=== PATIENT | female | born 2000 | race Caucasian/White ===

== ENCOUNTER 2020-07-26 13:33 | Inpatient (IN) | payer BC, SELFPAY ==
[2020-07-26 13:56] VITALS: BP 144/98; PULSE 91; PULSE 96; RESP 20; TEMP 37.2; O2SAT 97; O2SAT 98; BMI 28.9
--- NOTE | 2020-07-26 13:57 | ED_ITS ---
HPI - Psych General Chief Complaint: General Medical Stated Complaint: ANXIETY Time Seen by Provider: 07/26/20 13:57 Source: patient and other (friend) Mode of arrival: ambulatory Limitations: no limitations History of Present Illness MD complaint: anxiety and other (confused, hyper) Onset (ago): week(s) (2) Duration: constant History of same: Yes Relieving factors: none Exacerbating factors: none Context: not taking psychiatric medications and significant life stressor Associated psychiatric symptoms: depression and racing thoughts Associated symptoms: denies other symptoms Treatments prior to arrival: none Related Data Allergies Allergy/AdvReac Type Severity Reaction Status Date / Time hydroxyzine Allergy Unknown unknown Verified 07/26/20 13:59 sertraline Allergy Unknown unknown Verified 07/26/20 13:59 Review of Systems Review of Systems: ROS unable to be obtained due to altered mental status, anxiety, agitation PMFSH Past Medical History Medical History Anxiety Bipolar 1 disorder Social History Social History Alcohol intake: never Smoking Status: Current every day smoker Use of substances other than those prescribed or required for medical reasons: Yes Substance Use Type: Marijuana Substance Use Frequency: Daily Advance Directives: No Advance Directives Information Provided: No Physical Exam Vital Signs: Vital Signs: Last Vital Signs Temp 98.9 F 07/26/20 13:56 Pulse 91 07/26/20 13:56 Resp 20 07/26/20 13:56 BP 144/98 H 07/26/20 13:56 Pulse Ox 97 07/26/20 13:56 Body Mass Index 28.9 Appearance: Alert. Oriented X3. Anxious/tearful mild acute distress. Eyes: Pupils equal, round and reactive to light. ENT: Pharynx normal. Neck: Normal inspection. Neck supple. CVS: Normal heart rate and rhythm. Pulses normal. Respiratory: No respiratory distress. Breath sounds normal. Abdomen: Soft and nontender. Skin: Skin warm and dry. Normal skin color. Normal skin turgor. Extremities: No lower extremity edema. No calf ttp Psych: no SI/HI, anxiety/depression Neuro: Oriented X 3. No motor deficit. No sensory deficit. Course Course Course Narrative: signed out to oncoming provider, section 12 bedsearch numbers for contact: Nicole [phone] roommate Ty: [phone] co-worker and friend : Barbra [phone] MDM - Psych MDM Narrative Medical decision making narrative: 20 yo female with hx of bipolar not on any medications here with what sounds like worsening thomas and decompensation x 2 weeks - will obtain labs, EKG, drug screen, CARE consult Lab Data Result diagrams: 07/26/20 14:32 07/26/20 14:32 Labs: Lab Results 07/26/20 07/26/20 07/26/20 Range/Units 14:32 14:32 14:32 WBC 9.4 (4.8-10.8) X10*3/uL RBC 4.66 (4.20-5.50) X10*6/uL Hgb 14.2 (12.0-16.0) g/dl Hct 41.0 (37-47) % MCV 88.0 (80-98) fL MCH 30.5 (27.0-33.0) pg MCHC 34.6 (31.0-35.0) g/dl RDW 11.9 (11.0-16.0) % Plt Count 304 (160-400) X10*3/uL MPV 8.8 L (9.4-12.3) fL Immature Gran % (Auto) 0.2 (0.0-0.4) % Neut % (Auto) 81.4 H (45-73) % Lymph % (Auto) 12.4 L (20-40) % Forrest % (Auto) 5.3 (2-11) % Eos % (Auto) 0.5 (0-4) % Baso % (Auto) 0.2 (0-2) % Lymph # (Auto) 1.2 (1.2-4.9) X10*3/uL Forrest # (Auto) 0.5 (0.1-1.2) X10*3/uL Eos # (Auto) 0.1 (0.0-0.4) X10*3/uL Baso # (Auto) 0.0 (0.0-0.2) X10*3/uL Abs Immat Gran (auto) 0.02 (0.00-0.03) X10*3/uL Absolute Neuts (auto) 7.6 (2.0-8.3) X10*3/uL Absolute Nucleated RBC 0.000 (0.0-0.012) X10*3/uL Nucleated RBC % (auto) 0.0 (0.0-0.2) /100WBC Hold Blue Top Sodium 139 (135-145) mmol/L Potassium 4.2 (3.3-5.1) mmol/l Chloride 105 (96-108) mmol/L Carbon Dioxide 23 (22-29) mmol/L Anion Gap 15 (12-20) BUN 10 (9-16) mg/dL Creatinine 0.79 (0.5-1.4) mg/dL Estim Creat Clear Calc 103.6 Estimated GFR > 60 Random Glucose 101 (60-115) mg/dL Calcium 9.3 (8.4-10.2) mg/dL Magnesium (1.6-2.6) mg/dL Total Bilirubin (0.0-1.0) mg/dL Direct Bilirubin (0.0-0.5) mg/dL AST (5-31) U/L ALT (0-31) U/L Alkaline Phosphatase (39-117) U/L Total Protein (6.5-8.0) g/dL Albumin (3.5-5.0) g/dL TSH 0.79 (0.32-4.0) uIU/mL Beta HCG, Quant < 2 mIU/mL Salicylates (15-30) mg/dL Acetaminophen (<30) mcg/mL Ethyl Alcohol < 10 mg/dL 07/26/20 07/26/20 07/26/20 Range/Units 14:32 14:32 14:32 WBC (4.8-10.8) X10*3/uL RBC (4.20-5.50) X10*6/uL Hgb (12.0-16.0) g/dl Hct (37-47) % MCV (80-98) fL MCH (27.0-33.0) pg MCHC (31.0-35.0) g/dl RDW (11.0-16.0) % Plt Count (160-400) X10*3/uL MPV (9.4-12.3) fL Immature Gran % (Auto) (0.0-0.4) % Neut % (Auto) (45-73) % Lymph % (Auto) (20-40) % Forrest % (Auto) (2-11) % Eos % (Auto) (0-4) % Baso % (Auto) (0-2) % Lymph # (Auto) (1.2-4.9) X10*3/uL Forrest # (Auto) (0.1-1.2) X10*3/uL Eos # (Auto) (0.0-0.4) X10*3/uL Baso # (Auto) (0.0-0.2) X10*3/uL Abs Immat Gran (auto) (0.00-0.03) X10*3/uL Absolute Neuts (auto) (2.0-8.3) X10*3/uL Absolute Nucleated RBC (0.0-0.012) X10*3/uL Nucleated RBC % (auto) (0.0-0.2) /100WBC Hold Blue Top SEE NOTE Sodium (135-145) mmol/L Potassium (3.3-5.1) mmol/l Chloride (96-108) mmol/L Carbon Dioxide (22-29) mmol/L Anion Gap (12-20) BUN (9-16) mg/dL Creatinine (0.5-1.4) mg/dL Estim Creat Clear Calc Estimated GFR Random Glucose (60-115) mg/dL Calcium (8.4-10.2) mg/dL Magnesium 2.1 (1.6-2.6) mg/dL Total Bilirubin 0.8 (0.0-1.0) mg/dL Direct Bilirubin 0.3 (0.0-0.5) mg/dL AST 19 (5-31) U/L ALT 25 (0-31) U/L Alkaline Phosphatase 79 (39-117) U/L Total Protein 8.2 H (6.5-8.0) g/dL Albumin 4.8 (3.5-5.0) g/dL TSH (0.32-4.0) uIU/mL Beta HCG, Quant mIU/mL Salicylates < 5.0 L (15-30) mg/dL Acetaminophen < 1 (<30) mcg/mL Ethyl Alcohol mg/dL ECG Data Attestation: I personally reviewed and interpreted this ECG as follows: ECG interpretation date: 07/26/20 ECG interpretation time: 14:31 Interpretation: Rate: 84 Rhythm: NSR [place]: normal Normal P waves. Normal JOHN. Normal QRS complex. ST T wave : normal qTC:normal prior studies: no acute ischemia The study has been interpreted contemporaneously by me. . Discharge Plan Discharge Clinical Impression: Manic behavior
--- NOTE | 2020-07-26 13:59 | ECG_ITS ---
Test Reason : SOB Blood Pressure : / mmHG Vent. Rate : 084 BPM Atrial Rate : 084 BPM P-R Int : 154 ms QRS Dur : 086 ms QT Int : 374 ms P-R-T Axes : 075 079 051 degrees QTc Int : 441 ms Normal sinus rhythm Early repolarization Possible Left atrial enlargement Borderline ECG No previous ECGs available Referred By: Cynthia Aguilar Electronically Signed By:TAVON BLAND MD
[2020-07-26] MEDS: LORazepam 1 MG TABLET 2 MG PO (14:10)
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
[2020-07-26 14:38] LABS: Basophils Percent Auto 0.2 % (0-2); Eosinophils Absolute Auto 0.1 X10*3/uL (0.0-0.4); Eosinophils Percent Auto 0.5 % (0-4); Hemoglobin 14.2 g/dl (12.0-16.0); Imm Gran Abs Auto 0.02 X10*3/uL (0.00-0.03); Imm Gran Pct Auto 0.2 % (0.0-0.4); Lymphocytes Absolute Auto 1.2 X10*3/uL (1.2-4.9); Lymphocytes Percent Auto 12.4 % (20-40); MANUAL DIFF FLAG NO; Mean Corpuscular HGB Conc 34.6 g/dl (31.0-35.0); Mean Corpuscular Hemoglobin 30.5 pg (27.0-33.0); Mean Platelet Volume 8.8 fL (9.4-12.3); Monocytes Absolute Auto 0.5 X10*3/uL (0.1-1.2); Monocytes Percent Auto 5.3 % (2-11); Neutrophils Absolute Auto 7.6 X10*3/uL (2.0-8.3); Neutrophils Percent Auto 81.4 % (45-73); Platelet Count 304 X10*3/uL (160-400); Red Blood Count 4.66 X10*6/uL (4.20-5.50); Red Cell Distribution Width 11.9 % (11.0-16.0); White Blood Count 9.4 X10*3/uL (4.8-10.8)
--- NOTE | 2020-07-26 14:38 | PC.NURSE ---
Belongings in [facility] locker #[id number].
--- NOTE | 2020-07-26 14:55 | PC.NURSE ---
Care team in with pt. pt arrived on unit w/ staff. pt tearful on arrival. oriented to unit.
[2020-07-26 14:57] LABS: Ethanol < 10 mg/dL
[2020-07-26 14:59] LABS: Acetaminophen LAB < 1 mcg/mL (<30); Salicylate < 5.0 mg/dL (15-30)
[2020-07-26 15:00] LABS: Alanine Aminotransferase 25 U/L (0-31); Albumin Level 4.8 g/dL (3.5-5.0); Alkaline Phosphatase 79 U/L (39-117); Anion Gap 15 (12-20); Aspartate Amino Transferase 19 U/L (5-31); Bilirubin Direct 0.3 mg/dL (0.0-0.5); Bilirubin Total 0.8 mg/dL (0.0-1.0); Blood Urea Nitrogen 10 mg/dL (9-16); Calcium 9.3 mg/dL (8.4-10.2); Carbon Dioxide 23 mmol/L (22-29); Chloride 105 mmol/L (96-108); Creatinine Clr Calc Pharmacy 103.6; Estimated Glomerular Filt Rate > 60; Glucose Random 101 mg/dL (60-115); Magnesium 2.1 mg/dL (1.6-2.6); Potassium 4.2 mmol/l (3.3-5.1); Sodium 139 mmol/L (135-145); Total Protein 8.2 g/dL (6.5-8.0)
[2020-07-26 15:07] LABS: HCG Quantitative < 2 mIU/mL
[2020-07-26 16:08] LABS: Thyroid Stimulating Hormone 0.78 uIU/mL (0.32-4.0)
[2020-07-26 16:17] VITALS: BP 124/79; PULSE 94; RESP 18; TEMP 36.6; O2SAT 95
[2020-07-26 16:34] LABS: UPreg QC Valid YES; Urine Pregnancy NEGATIVE (NEGATIVE)
[2020-07-26 17:05] LABS: Amphetamine Screen Urine Not Detected (Not Detect); Barbiturates, Urine Not Detected (Not Detect); Benzodiazepines Screen Urine Not Detected (Not Detect); Cannabinoid Screen Urine POSITIVE (Not Detect); Cocaine Screen Urine Not Detected (Not Detect); Opiate Screen Urine Not Detected (Not Detect); Phencyclidine Screen Urine Not Detected (Not Detect)
--- NOTE | 2020-07-26 17:57 | PC.NURSE ---
Pt resting, resp unlabored.
--- NOTE | 2020-07-26 19:17 | MHC.CARE ---
Addendum entered by Milena Rojas [facility] 07/26/20 20:05: CARE team spoke to patient's mother Ava and updated on status. CARE team will provide status updates but mother is aware she can call if she doesn't hear anything. CARE team then followed up with [facility] and they report they are not accepting patient. Bedsearch is considered exhausted at this time. CARE team updated pod. Original Note: Bedsearch Note CARE team completed bedsearch with the following results: [facility] [phone] no beds available [facility] [phone] no female beds available [facility] [phone] can fax [phone] [facility] [phone] no beds available [facility] not accepting admissions until 08/03/2020 [facility] [phone] not accepting admissions outside [place] per [facility] and phone calls from previous shift, all other units within 100 mile radius are not accepting referrals. CARE team faxed eval to ([facility]) and is awaiting review.
--- NOTE | 2020-07-26 19:50 | PC.NURSE ---
Patient in bed, disorganized, tangential, seems alert and oriented, but disoriented thought process, tearful at time, reported that she stopped taking her medication over a week, patient reassured, will continue to monitor.
--- NOTE | 2020-07-26 22:28 | PC.NURSE ---
Called [facility] pharmacy for medication reconciliation, patient is currently on Hydroxyzine 50 mg TID PRN and Ativan 0.5 mg BID PRN, provider listed hydroxyzine on Allergy list per patient's report. Patient is off her Sertraline 50 mg & Lamictal 25 mg since September of 2019. Provider updated, will continue to monitor.
[2020-07-26] MEDS: LORazepam 0.5 MG TABLET PO (23:10)
--- NOTE | 2020-07-26 23:30 | PC.NURSE ---
Patient in her room currently, comes out of room asking whether she is safe here, patient reassured multiple times, patient has disturbed thought process and tangential. PRN Ativan 0.5 mg administered as ordered, will continue to monitor, provide safety and comfort.
[2020-07-27 00:18] VITALS: BP 147/94; PULSE 90; RESP 16; TEMP 36.6; O2SAT 97
[2020-07-27] MEDS: Melatonin 3 MG TABLET 6 MG PO (02:26)
--- NOTE | 2020-07-27 02:30 | PC.NURSE ---
Melatonin 6 mg administered as ordered, will continue to monitor.
--- NOTE | 2020-07-27 04:29 | PC.NURSE ---
Patient in bed lying, awake, self dialoguing, no distress reported, will continue to monitor.
--- NOTE | 2020-07-27 06:20 | PC.NURSE ---
Patient in bed lying on her side, awake, struggling to sleep, patient disorganized with disturbed thought process, engaged in non-sequitur talk in low tone. Will continue to monitor.
[2020-07-27] MEDS: LORazepam 1 MG TABLET 2 MG PO (06:51)
[2020-07-27] MEDS: HaloperidoL 5 MG TABLET PO ×2 (06:52→19:09)
--- NOTE | 2020-07-27 07:23 | PC.NURSE ---
Report received from BRITT Velez. Pt awake, reporting that she is surprised that she is feeling better since receiving medication.
--- NOTE | 2020-07-27 08:58 | MHC.CARE ---
t/w called [facility] to inquire about evaluation from pass along that pt was being reviewed. They reported this was not received but willing to accept now. t/w faxed full clinical packet for review.
[2020-07-27 10:00] VITALS: BP 135/84; PULSE 86; RESP 15; TEMP 36.8; O2SAT 98
--- NOTE | 2020-07-27 10:56 | PC.NURSE ---
Dr Willie Matos in to evaluate.
--- NOTE | 2020-07-27 11:32 | PM.PSYCN ---
History of Present Illness Chief Complaint: ANXIETY Reason for Consult: Agitation Requesting physician: Cynthia Aguilar Discussed with referring provider: No Sources of Information: patient interviewed (Unable to interview since patient was asleep), chart reviewed and crisis/core team assessment reviewed Additional Sources of Information: BRITT Lima HPI Narrative: Milla came to the ER with agitation and psychosis. Full details are in the chart, and the CARE team note. She has been quite restless, anxious and not sleeping. She was given haldol and ativan with good effect and is now sleeping. [facility] Medical History Anxiety Bipolar 1 disorder Diagnostics Vital Signs (24Hr): Vital Signs - 24 hr 07/26/20 13:56 07/26/20 16:17 07/27/20 00:18 Temperature 98.9 F 98 F 97.8 F Pulse Rate 91 94 90 Respiratory Rate 20 18 16 Blood Pressure 144/98 H 124/79 147/94 H Pulse Oximetry 97 95 97 07/27/20 10:00 Temperature 98.3 F Pulse Rate 86 Respiratory Rate 15 Blood Pressure 135/84 Pulse Oximetry 98 Body Mass Index 28.9 Labs Results: 07/26/20 14:32 07/26/20 14:32 Labs: Laboratory Results - last 48 hr 07/26/20 07/26/20 07/26/20 14:32 14:32 14:32 WBC 9.4 RBC 4.66 Hgb 14.2 Hct 41.0 MCV 88.0 MCH 30.5 MCHC 34.6 RDW 11.9 Plt Count 304 MPV 8.8 L Immature Gran % (Auto) 0.2 Neut % (Auto) 81.4 H Lymph % (Auto) 12.4 L [place] % (Auto) 5.3 Eos % (Auto) 0.5 Baso % (Auto) 0.2 Lymph # (Auto) 1.2 [place] # (Auto) 0.5 Eos # (Auto) 0.1 Baso # (Auto) 0.0 Abs Immat Gran (auto) 0.02 Absolute Neuts (auto) 7.6 Absolute Nucleated RBC 0.000 Nucleated RBC % (auto) 0.0 Hold Blue Top Sodium 139 Potassium 4.2 Chloride 105 Carbon Dioxide 23 Anion Gap 15 BUN 10 Creatinine 0.79 Estim Creat Clear Calc 103.6 Estimated GFR > 60 Random Glucose 101 Calcium 9.3 Magnesium Total Bilirubin Direct Bilirubin AST ALT Alkaline Phosphatase Total Protein Albumin TSH 0.78 Beta HCG, Quant < 2 Urine Test Salicylates Urine Opiates Screen Acetaminophen Ur Barbiturates Screen Ur Phencyclidine Scrn Ur Amphetamines Screen U Benzodiazepines Scrn Urine Cocaine Screen U Marijuana (THC) Screen Ethyl Alcohol < 10 07/26/20 07/26/20 07/26/20 14:32 14:32 14:32 WBC RBC Hgb Hct MCV MCH MCHC RDW Plt Count MPV Immature Gran % (Auto) Neut % (Auto) Lymph % (Auto) [place] % (Auto) Eos % (Auto) Baso % (Auto) Lymph # (Auto) [place] # (Auto) Eos # (Auto) Baso # (Auto) Abs Immat Gran (auto) Absolute Neuts (auto) Absolute Nucleated RBC Nucleated RBC % (auto) Hold Blue Top SEE NOTE Sodium Potassium Chloride Carbon Dioxide Anion Gap BUN Creatinine Estim Creat Clear Calc Estimated GFR Random Glucose Calcium Magnesium 2.1 Total Bilirubin 0.8 Direct Bilirubin 0.3 AST 19 ALT 25 Alkaline Phosphatase 79 Total Protein 8.2 H Albumin 4.8 TSH Beta HCG, Quant Urine Test Salicylates < 5.0 L Urine Opiates Screen Acetaminophen < 1 Ur Barbiturates Screen Ur Phencyclidine Scrn Ur Amphetamines Screen U Benzodiazepines Scrn Urine Cocaine Screen U Marijuana (THC) Screen Ethyl Alcohol 07/26/20 07/26/20 16:26 16:26 WBC RBC Hgb Hct MCV MCH MCHC RDW Plt Count MPV Immature Gran % (Auto) Neut % (Auto) Lymph % (Auto) [place] % (Auto) Eos % (Auto) Baso % (Auto) Lymph # (Auto) [place] # (Auto) Eos # (Auto) Baso # (Auto) Abs Immat Gran (auto) Absolute Neuts (auto) Absolute Nucleated RBC Nucleated RBC % (auto) Hold Blue Top Sodium Potassium Chloride Carbon Dioxide Anion Gap BUN Creatinine Estim Creat Clear Calc Estimated GFR Random Glucose Calcium Magnesium Total Bilirubin Direct Bilirubin AST ALT Alkaline Phosphatase Total Protein Albumin TSH Beta HCG, Quant Urine Test NEGATIVE Salicylates Urine Opiates Screen Not Detected Acetaminophen Ur Barbiturates Screen Not Detected Ur Phencyclidine Scrn Not Detected Ur Amphetamines Screen Not Detected U Benzodiazepines Scrn Not Detected Urine Cocaine Screen Not Detected U Marijuana (THC) Screen POSITIVE H Ethyl Alcohol Mental Status Exam Mental Status Exam Narrative: Unable to perform due to patient sleeping. Medications Medications Current Medications Generic Name Dose Route Start Last Admin Trade Name Freq PRN Reason Stop Dose Admin Lorazepam 0.5 mg 07/26/20 22:44 07/26/20 23:10 Lorazepam 0.5 Mg Tablet PO 0.5 mg BID PRN Administration Anxiety Allergies Allergies Allergy/AdvReac Type Severity Reaction Status Date / Time hydroxyzine Allergy Unknown unknown Verified 07/26/20 13:59 sertraline Allergy Unknown unknown Verified 07/26/20 13:59 Assessment & Plan Assessment & Plan (1) Manic behavior: Status: Acute Code(s): F30.10 - Manic episode without psychotic symptoms, unspecified Recommendations: Haldol and ativan prn Bed search More complete evaluation when able to interview Greater than 50% of the session was spent on counseling and/or coordination of care
--- NOTE | 2020-07-27 12:09 | MHC.CARE ---
t/w spoke with admissions at [facility] who cannot accept pt today as they only have a male bed open and have to use for their own ED pt. They will hold onto the clinical packet and can be referred tomorrow when bedsearch resumes.
[2020-07-27 16:04] VITALS: BP 126/75; PULSE 100; RESP 20; TEMP 36.3; O2SAT 100
--- NOTE | 2020-07-27 17:40 | PC.NURSE ---
Pt out on unit, making telephone calls and now conversing w/ another patient. Pt affect brighter, cooperative w/ social distancing and mask.
[2020-07-27] MEDS: LORazepam 1 MG TABLET PO (19:09)
[2020-07-27] MEDS: Benztropine Mesylate 1 MG TABLET PO (19:09)
--- NOTE | 2020-07-27 19:13 | PC.NURSE ---
Patient accepted her PRN haldol 5 mg tablet, Ativan 1 mg tablet, and cogentin 1 mg tablet, per report patient tolerated PO haldol well which she received this morning. Patient continues to presents psychotic, tangential, engaged in non sequitur talks, denied distress, will continue to monitor.
--- NOTE | 2020-07-27 20:32 | PC.NURSE ---
Patient sitting in her bed, watching TV, calm and quiet, good behavioral control at this time, compliant with Covid swab/swabbed/sent to lab/pending result. Will continue to monitor the patient, provide comfort reassurance and comfort.
[2020-07-27 21:52] LABS: SARS COV2 PCR INHOUSE NEGATIVE (Negative)
--- NOTE | 2020-07-27 22:34 | MHC.CARE ---
Late entry: Mental Status Exam completed at 16:00. Pt continues to require inpt psych admission for stabilization and has an active Section 12a in her chart.
--- NOTE | 2020-07-27 22:58 | PC.NURSE ---
Patient in bed appears sleeping, no distress observed/reported, respiration +/=/non-labored bilaterally. will continue to monitor.
[2020-07-27 23:54] VITALS: RESP 18
--- NOTE | 2020-07-28 00:47 | PC.NURSE ---
Patient just got out of room asked for water and blanket, needs met as requested, patient back to bed seems sleeping, no distress reported, will continue to monitor.
--- NOTE | 2020-07-28 02:56 | PC.NURSE ---
Patient in bed appears sleeping, no distress observed/reported, will continue to monitor.
--- NOTE | 2020-07-28 04:52 | PC.NURSE ---
Patient in bed appears sleeping, no distress observed/reported, respiration +/=/non-labored bilaterally, will continue to monitor.
[2020-07-28 06:20] VITALS: BP 121/79; PULSE 86; RESP 16; TEMP 36.6; O2SAT 99
--- NOTE | 2020-07-28 06:35 | PC.NURSE ---
Patient slept through the night, no distress reported/observed, respiration +/=/non-labored bilaterally, will continue to monitor.
--- NOTE | 2020-07-28 06:57 | PC.NURSE ---
Report recieved. Pt walking around unit, calm and cooperative, denies complaints. Pt is inpatient bedsearch. Breakfast at bedside
[2020-07-28 09:45] VITALS: BP 114/66; PULSE 69; RESP 18; TEMP 37.1; O2SAT 99
--- NOTE | 2020-07-28 11:13 | MHC.CARE ---
CARE Team contacted [facility] [phone] option 3 Reference #[id number] Pt does not require ongoing clinical review. Discharge summary needs to be faxed to [phone]
[2020-07-28] MEDS: LORazepam 0.5 MG TABLET PO (11:19)
--- NOTE | 2020-07-28 11:29 | MHC.CARE ---
Pts mother updated of plan of care on Pts request.
[2020-07-28 15:30] VITALS: BP 129/85; PULSE 96; RESP 16; TEMP 36.6; O2SAT 97
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
[2020-07-28] MEDS: Flu Vacc QS2020-21(6mos up)/PF 0.5 ML SYRINGE IM (20:44)
[2020-07-29] MEDS: LORazepam 1 MG TABLET PO ×3 (04:12→20:47)
[2020-07-29 06:10] VITALS: BP 125/58; PULSE 85; RESP 16; TEMP 35.8; O2SAT 98
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
[2020-07-29] MEDS: HaloperidoL 5 MG TABLET PO (08:41)
[2020-07-29] MEDS: Benztropine Mesylate 1 MG TABLET PO (08:42)
[2020-07-29 18:00] VITALS: BP 138/78; PULSE 81; TEMP 37
--- NOTE | 2020-07-30 04:26 | HO.PSYCHPN ---
Subjective Subjective Date of Service: 07/30/20 Reason For Visit: Trauma and stress related disorder Subjective Notes: Conditional Voluntary and 3 Day Interim History: Appears more organized today. Logical. Denies PI/psychotic Sx. Recalls panic attack. Hx heavy THC use. No e/o bipolar Medication Compliance: Yes Side effects from medications: No Attending Groups: Yes Review of Systems Review of Systems Yes all other systems are reviewed and are negative Mental Status Exam Mental Status Exam Narrative: Unable to perform due to patient sleeping. Patient Appearance: Well Grooomed Patient Orientation: Person, Place, Time and Situation Level of Consciousness: Appropriate Patient Behavior: Appropriate Mood Description: Calm Affect Description: Calm and Cheerful Patient Cognition Impaired: No Ability to Follow Directions: Excellent Speech Pattern: Clear Memory Description: Intact and Recent Impaired Hallucinations: None Delusions: Not Present Thought Process: Intact Thought Content: positive for Intact Judgement: Fair Diagnostics Vital Signs (24Hr): Vital Signs - 24 hr 07/29/20 06:10 07/29/20 18:00 Temperature 96.5 F L 98.6 F Pulse Rate 85 81 Respiratory Rate 16 Blood Pressure 125/58 L 138/78 Pulse Oximetry 98 Body Mass Index 28.9 Labs Results: 07/26/20 14:32 07/26/20 14:32 Medications Medications Current Medications Generic Name Dose Route Start Last Admin Trade Name Freq PRN Reason Stop Dose Admin Benztropine Mesylate 1 mg 07/27/20 11:38 07/29/20 08:42 Benztropine Mesylate 1 Mg Tablet PO 1 mg RQ4H PRN Administration anxiety/restlessness Haloperidol 5 mg 07/27/20 11:38 07/29/20 08:41 Haloperidol 5 Mg Tablet PO 5 mg RQ4H PRN Administration Anxiety Lorazepam 1 mg 07/27/20 11:38 07/29/20 20:47 Lorazepam 1 Mg Tablet PO 1 mg RQ4H PRN Administration Anxiety Risperidone 1 mg 07/30/20 09:00 Risperidone 1 Mg Tablet PO BID JULISSA Allergies Allergies Allergy/AdvReac Type Severity Reaction Status Date / Time hydroxyzine Allergy Unknown unknown Verified 07/26/20 13:59 sertraline Allergy Unknown unknown Verified 07/26/20 13:59 Assessment & Plan Assessment & Plan (1) Unspecified psychosis: Status: Acute Code(s): F29 - Unspecified psychosis not due to a substance or known physiological condition (2) Cannabis use disorder, severe, dependence: Status: Acute Code(s): F12.20 - Cannabis dependence, uncomplicated (3) PTSD (post-traumatic stress disorder): Status: Acute Code(s): F43.10 - Post-traumatic stress disorder, unspecified Assessment and Plan: q15 Pt has 3 day in. Risperidone 1 mg BID Collateral from [facility] OP providers to be established Greater than 50% of the session was spent on counseling and/or coordination of care
[2020-07-30] MEDS: risperiDONE 1 MG TABLET PO ×2 (08:45→21:02)
[2020-07-30 09:16] VITALS: BP 129/61; PULSE 76; TEMP 36.7; O2SAT 99
[2020-07-30] MEDS: LORazepam 0.5 MG TABLET PO (13:29)
[2020-07-30] MEDS: Acetaminophen 325 MG TABLET PO (13:29)
[2020-07-30 18:00] VITALS: BP 148/73; PULSE 99; TEMP 37
[2020-07-31] MEDS: Acetaminophen 325 MG TABLET PO ×2 (04:22→17:06)
[2020-07-31 06:10] VITALS: BP 120/58; PULSE 83; RESP 16; TEMP 36.8; O2SAT 97
[2020-07-31 07:00] VITALS: BMI 28.6
--- NOTE | 2020-07-31 07:28 | HO.PSYCHPN ---
Subjective Subjective Date of Service: 07/31/20 Reason For Visit: Trauma and stress related disorder Interim History: Appears more organized today. Logical. Denies PI/psychotic Sx. Recalls panic attack. Hx heavy THC use. No e/o bipolar. Making plans to live in [facility]. Family not supportive. 3 day up tomorrow. DC Fri Medication Compliance: Yes Side effects from medications: No Attending Groups: Yes Review of Systems Review of Systems Yes all other systems are reviewed and are negative Mental Status Exam Mental Status Exam Narrative: Unable to perform due to patient sleeping. Patient Appearance: Well Grooomed Patient Orientation: Person, Place, Time and Situation Level of Consciousness: Appropriate Patient Behavior: Appropriate Mood Description: Calm Affect Description: Calm and Cheerful Patient Cognition Impaired: No Ability to Follow Directions: Excellent Speech Pattern: Clear Memory Description: Intact and Recent Impaired Diagnostics Vital Signs (24Hr): Vital Signs - 24 hr 07/30/20 09:16 07/30/20 18:00 07/31/20 06:10 Temperature 98.0 F 98.6 F 98.2 F Pulse Rate 76 99 83 Respiratory Rate 16 Blood Pressure 129/61 148/73 H 120/58 L Pulse Oximetry 99 97 Body Mass Index 28.9 Labs Results: 07/26/20 14:32 07/26/20 14:32 Medications Medications Current Medications Generic Name Dose Route Start Last Admin Trade Name Freq PRN Reason Stop Dose Admin Acetaminophen 325 mg 07/30/20 11:20 07/31/20 04:22 Acetaminophen 325 Mg Tablet PO 325 mg Q6H PRN Administration Pain, Moderate (Pain Scale 4-6 Benztropine Mesylate 1 mg 07/27/20 11:38 07/29/20 08:42 Benztropine Mesylate 1 Mg Tablet PO 1 mg RQ4H PRN Administration anxiety/restlessness Haloperidol 5 mg 07/27/20 11:38 07/29/20 08:41 Haloperidol 5 Mg Tablet PO 5 mg RQ4H PRN Administration Anxiety Lorazepam 0.5 mg 07/30/20 11:25 07/30/20 13:29 Lorazepam 0.5 Mg Tablet PO 0.5 mg RQ4H PRN Administration Anxiety Risperidone 1 mg 07/30/20 09:00 07/30/20 21:02 Risperidone 1 Mg Tablet PO 1 mg BID JULISSA Administration Allergies Allergies Allergy/AdvReac Type Severity Reaction Status Date / Time hydroxyzine Allergy Unknown unknown Verified 07/26/20 13:59 sertraline Allergy Unknown unknown Verified 07/26/20 13:59 Assessment & Plan Assessment & Plan (1) Unspecified psychosis: Status: Acute Code(s): F29 - Unspecified psychosis not due to a substance or known physiological condition (2) Cannabis use disorder, severe, dependence: Status: Acute Code(s): F12.20 - Cannabis dependence, uncomplicated (3) PTSD (post-traumatic stress disorder): Status: Acute Code(s): F43.10 - Post-traumatic stress disorder, unspecified Assessment and Plan: q15 Pt has 3 day in. Risperidone 2 mg HS Collateral from [facility] OP providers to be established Greater than 50% of the session was spent on counseling and/or coordination of care
[2020-07-31] MEDS: risperiDONE 1 MG TABLET PO (08:16)
[2020-07-31] MEDS: HaloperidoL 5 MG TABLET PO (12:45)
[2020-07-31] MEDS: Benztropine Mesylate 1 MG TABLET PO (17:54)
[2020-07-31 18:00] VITALS: BP 135/84; PULSE 77; TEMP 36.6
[2020-07-31] MEDS: risperiDONE 0.5 MG TABLET 2 MG PO (19:59)
[2020-07-31] MEDS: Melatonin 3 MG TABLET 6 MG PO (19:59)
[2020-08-01 06:08] VITALS: BP 137/65; PULSE 82; RESP 18; TEMP 36.3; O2SAT 98
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
[2020-08-01] MEDS: LORazepam 0.5 MG TABLET PO (06:57)
== END 2020-08-01 13:25 | disposition home or self-care (01) | DRG 751 ==
LOC: HO.ED 19:15 → HO.PM5 07-28 13:00
PROVIDERS: Physician Assistant; Admitting Provider Psychiatry & Neurology Psychiatry; Emergency Provider Emergency Medicine; PCP Nurse Practitioner Family; Visit Provider Psychiatry & Neurology Psychiatry
DX: F29 Unspecified psychosis not due to a substance or known physiological condition (principal); F12.20 Cannabis dependence, uncomplicated; F17.210 Nicotine dependence, cigarettes, uncomplicated; F43.10 Post-traumatic stress disorder, unspecified; Z71.6 Tobacco abuse counseling; Z23 Encounter for immunization; Z91.410 Personal history of adult physical and sexual abuse; Z20.828 Contact with and (suspected) exposure to other viral communicable diseases; Z79.899 Other long term (current) drug therapy
CPT/HCPCS: 36415; 80048; 80076; 80307; 80320; 81025; 83735; 84443; 84702; 85025; 90686; 93005; 99223; 99232; 99239; 99285; G0480; U0003